=== PATIENT | female | born 1995 | race Caucasian/White ===

== ENCOUNTER 2017-12-04 20:28 | Emergency (ER) | payer OTHER ==
[~2017-12-04] VITALS: Ht 175.3 cm; Wt 104.3 kg
[2017-12-04 20:35] VITALS: BP 134/76; Ht 175.3 cm; Wt 104.3 kg
== END 2017-12-04 22:06 | disposition left against medical advice (07) ==
LOC: ED 20:28
DX: Z53.21 Procedure and treatment not carried out due to patient leaving prior to being seen by health care provider (principal)

== ENCOUNTER 2017-12-19 18:57 | Emergency (ER) | payer OTHER ==
[~2017-12-19] VITALS: Ht 175.3 cm; Wt 104.3 kg
[2017-12-19 19:27] VITALS: Ht 175.3 cm; Wt 104.3 kg
[2017-12-19 20:57] VITALS: BP 140/94
== END 2017-12-19 20:57 | disposition home or self-care (01) ==
LOC: ED 18:57
DX: F41.0 Panic disorder [episodic paroxysmal anxiety] (principal)